=== PATIENT | male | born 1970 | race Caucasian/White ===

== ENCOUNTER 2018-02-21 01:14 | Observation (INO) ==
[2018-02-21] MEDS ORDERED: ceFAZolin 2 GM Premix Inj 2 GM/50 ML PIGGYBACK IV.SIG ONE (01:20)
[2018-02-21] MEDS ORDERED: Diphtheria/Tetanus/Pertussis Vaccine Inj 0.5 ML Syringe IM ONE (01:21)
[2018-02-21] MEDS ORDERED: Morphine Sulfate Inj 2 MG/ML Vial ONE (01:22)
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
[2018-02-21 01:34] LABS: Baso # (Auto) 0.1 th/mm3 (0.0-0.2); Baso % (Auto) 1.1 % (0.0-2.0); Eos # (Auto) 0.2 th/mm3 (0.0-0.4); Eos % (Auto) 2.1 % (0.0-4.0); Hematocrit 37.7 % (39.0-51.0); Hemoglobin 12.8 gm/dL (13.0-17.0); Lymph % (Auto) 35.5 % (9.0-44.0); Mean Corpuscular HGB Conc 33.9 % (32.0-36.0); Mean Corpuscular Hemoglobin 30.5 pg (27.0-34.0); Mean Corpuscular Volume 90.1 fL (80.0-100.0); Mean Platelet Volume 7.1 fL (7.0-11.0); Mono # (Auto) 0.4 th/mm3 (0.0-0.9); Mono % (Auto) 5.3 % (0.0-8.0); Neut # (Auto) 4.7 th/mm3 (1.8-7.7); Platelet Count 301 th/mm3 (150-450); Red Blood Count 4.19 mil/mm3 (4.50-5.90); Red Cell Distribution Width 12.7 % (11.6-17.2); White Blood Count 8.4 th/mm3 (4.0-11.0)
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
[2018-02-21 01:43] LABS: Activated Partial Thrombo Time 24.5 sec (24.3-30.1); INR 1.1 Ratio; Prothrombin Time 10.9 sec (9.8-11.6)
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
[2018-02-21 01:51] LABS: Calcium 7.5 mg/dL (8.5-10.1); Carbon Dioxide 23.3 meq/L (21.0-32.0); Potassium 4.1 meq/L (3.5-5.1)
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
[2018-02-21] MEDS ORDERED: Morphine Inj 4 MG/ML Vial IV.PUSH ONE (02:41)
[2018-02-21 03:10] LABS: Bilirubin,Urine Negative (Negative); Clarity,Urine Clear (Clear); Color,Urine Colorless (Yellw/Straw); Glucose,Urine (UA) Negative (Negative); Leukocyte Esterase,Urine Negative (Negative); Nitrite,Urine Negative (Negative)
[2018-02-21 03:15] LABS: Amphetamine Screen,Urine Neg (Neg); Barbiturate Screen,Urine Neg (Neg); Cannabinoid Screen,Urine Neg (Neg); Cocaine Screen,Urine Neg (Neg)
[2018-02-21 03:16] LABS: Opiate Screen,Urine Neg (Neg)
[2018-02-21] MEDS: HYDROmorphone PF Inj 2 MG/ML Vial IV.PUSH PRN ×3 (07:08→21:06)
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
[2018-02-21] MEDS ORDERED: ceFAZolin Inj 2,000 MG in Sodium Chlor 0.9% Inj 80 ML IV.SIG SCH (10:00)
[2018-02-21] MEDS: Famotidine 20 MG Tablet PO SCH ×2 (10:28→20:24)
[2018-02-21] MEDS: Senna/Docusate Sodium 8.6/50 MG Tablet PO SCH ×2 (10:29→20:24)
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
[2018-02-21] MEDS ORDERED: Succinylcholine Inj 100 MG/5 ML Syringe IV.PUSH ONE (12:45)
[2018-02-21] MEDS ORDERED: Phenylephrine/NS 1000 MCG/10ML Syringe IV.PUSH ONE (12:45)
[2018-02-21] MEDS ORDERED: Lidocaine 2% Inj 50 ML Vial ONE (12:53)
[2018-02-21] MEDS ORDERED: Lidocaine 2%/Epinephrine 1:200,000 PF Inj 20 ML Vial ONE (12:56)
[2018-02-21] MEDS ORDERED: Dexmedetomidine Inj 200 MCG/2 ML Vial ONE (15:08)
--- NOTE | 2018-02-21 15:35 | P.OP ---
- Preoperative Diagnosis (1) Facial laceration (2) Laceration of arm Preoperative Diagnosis: complex right facial soft tissue injury/laceration 10 cm left upper arm lacerations x 2 7cm and 4.5 cm Postoperative Diagnosis: jem Date of procedure: 02/21/18 Procedure: debridement and closure of facial soft tissue injury/laceration debridement and closure of left upper arm lacerations examination under anesthesia Anesthesia: GETA, local (2:lidocaine with 1:200,000 epi 12 cc) Surgeon: Timothy Ochoa DMD Exercise Instruct: or staff josh
[2018-02-21] MEDS ORDERED: *morphine SULFATE 4 MG/ML PERIprocedure ONLY ONE (15:58)
[2018-02-21] MEDS: Sod Chloride 0.9% Inj 1,000 ML IV.CONT SCH (16:05)
[2018-02-21] MEDS ORDERED: fentaNYL Citrate Inj 100 MCG/2 ML Ampul ONE (17:55)
[2018-02-21] MEDS: ceFAZolin 2 GM Premix Inj 2 GM/50 ML PIGGYBACK IV.SIG SCH ×2 (18:00→18:01)
[2018-02-21] MEDS: MethylPREDNISolone Sod Succinate Inj 125 MG/2 ML Vial IV.PUSH SCH (18:01)
[2018-02-21] MEDS ORDERED: Morphine Inj 4 MG/ML Vial ONE (19:06)
--- NOTE | 2018-02-21 21:48 | MP ---
cc: Timothy Ochoa DMD DATE OF OPERATION: ADDENDUM: Also known at [facility] Examination under anesthesia, intraorally everything appears pink and healthy. No [id number]-[id number]-[id number] lacerations noted. No ductal involvement that is noted. Everything appears stable intraorally. Timothy Ochoa DMD RT/ns , 03:54 PM , 03:59 PM
[2018-02-22] MEDS: MethylPREDNISolone Sod Succinate Inj 125 MG/2 ML Vial IV.PUSH SCH (00:15)
[2018-02-22] MEDS: HYDROmorphone PF Inj 2 MG/ML Vial IV.PUSH PRN ×3 (00:15→06:20)
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
[2018-02-22] MEDS: ceFAZolin 2 GM Premix Inj 2 GM/50 ML PIGGYBACK IV.SIG SCH (03:26)
[2018-02-22] MEDS ORDERED: Chlorhexidine Gluconate 2% 1 Pack (2 Cloths) TOPICAL PRN (04:00)
[2018-02-22] MEDS ORDERED: Chlorhexidine Gluconate 2% 1 Pack (2 Cloths) TOPICAL SCH (04:00)
[2018-02-22 05:28] VITALS: TEMP 97.5
[2018-02-22] MEDS: Sod Chloride 0.9% Inj 1,000 ML IV.CONT SCH ×2 (05:43→05:44)
[2018-02-22] MEDS ORDERED: HYDROmorphone PF Inj 2 MG/ML Vial IV.PUSH PRN (08:06)
[2018-02-22] MEDS: Famotidine 20 MG Tablet PO SCH (09:22)
[2018-02-22] MEDS: Senna/Docusate Sodium 8.6/50 MG Tablet PO SCH (09:22)
[2018-02-22 09:32] VITALS: BP 114/65; PULSE 73; RESP 18
[2018-02-22] MEDS ORDERED: ceFAZolin 2 GM Premix Inj 2 GM/100 ML BAG IV.SIG SCH (10:00)
--- NOTE | 2018-02-22 10:01 | P.PN ---
Subjective Interval history: POD 1 s/p debridement/closure of complex right face & left upper arm soft tissue injury/lacerations pt seen and examined aaox3, nad tolerating po, voiding, ambulating /son at bedside Physical Exam Vital signs: Vital Signs 02/21/18 11:40 02/21/18 15:30 02/21/18 15:40 Temperature 98.0 F 98.3 F Pulse Rate 73 94 H 92 H Respiratory Rate 16 20 17 Blood Pressure 123/71 105/59 L 103/56 L Pulse Oximetry 95 91 L 96 02/21/18 15:50 02/21/18 16:00 02/21/18 16:05 Temperature 99.0 F 97.8 F Pulse Rate 92 H 89 90 Respiratory Rate 16 18 16 Blood Pressure 103/59 L 112/66 100/60 Pulse Oximetry 96 96 96 02/21/18 18:38 02/21/18 20:00 02/22/18 00:00 Temperature 97.4 F L 97.6 F Pulse Rate 91 H 78 Respiratory Rate 18 18 Blood Pressure 126/63 116/57 L Pulse Oximetry 96 95 94 L 02/22/18 04:00 02/22/18 08:00 Temperature 97.5 F L 97.5 F L Pulse Rate 70 73 Respiratory Rate 16 18 Blood Pressure 113/56 L 114/65 Pulse Oximetry 94 L 95 Intake & Output 02/21/18 02/22/18 02/22/18 18:59 06:59 18:59 Intake Total 1050 / 1050 2009 Output Total 5 / 5 Balance 1045 / 1045 2009 Intake: IV 50 / 50 1050 / 1050 NS Inj 1,000 ML @ 100 mls/hr IV 1000 / 1000 .CONT .Q10H [facility] Rx#:[id number] Ancef 2 GM Premix Inj 2 gm In 50 / 50 50 / 50 50 ml @ 200 mls/hr IV.SIG Q8H [facility] Rx#:[id number] Oral 400 / 400 960 / 960 Anesthesia Amount 600 / 600 Output: Estimated Blood Loss 5 / 5 Other: # Voids 1 2 Date of Last Bowel Movement 02/21/18 - Constitutional mild distress - Routine HEENT Exam Head: Present: normocephalic - Detailed Head Exam Comments: face/head/left arm dressing in place, hemostatic, clean and dry no tenderness to palpation Results - Labs CBC & Chem 7: 02/21/18 01:20 02/21/18 01:20 Assessment and Plan - Plan ok to d/c to home form oms standpoint f/up dr pavon 02-23-18 [facility] call [phone] keep dressings dry soft diet Head over bed 30 degrees
[2018-02-22 10:32] VITALS: O2SAT 94
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
== END 2018-02-22 11:58 | disposition home or self-care (01) ==
LOC: NEDA 01:14 → NEPI 01:14 → EDBD 02:54 → NEPGCP 06:22 → N07 11:52 → N06 13:25
PROVIDERS: ADMIT Surgery; ATTEND Surgery
PROC: IDMOUTH (2018-02-21 12:47)
DX: S01.81XA Laceration without foreign body of other part of head, initial encounter; S41.112A Laceration without foreign body of left upper arm, initial encounter; V58.5XXA Driver of pick-up truck or van injured in noncollision transport accident in traffic accident, initial encounter